=== PATIENT | female | born 1990 | race Caucasian/White ===

== ENCOUNTER 2016-08-25 08:03 | Emergency (ER) | payer MEDICAID ==
[~2016-08-25] VITALS: Ht 160 cm; Wt 75.0 kg
[~2016-08-25 08:03] MED LIST: ERYT500 PO; RANI150 PO; Z.0.NO CURRENT MEDS; ZYRT10TA12 PO
[2016-08-25 08:04] VITALS: BP 146/77; PULSE 107; RESP 18; TEMP 98.2; O2SAT 98
[2016-08-25] MEDS ORDERED: MOTR200T4 PO (08:16)
--- NOTE | 2016-08-25 08:21 | PD ---
HPI Chief Complaint: Injury Time Seen by Provider: 08:21 Travel History International Travel<30 days: No Contact w/Intl Traveler<30days: No Traveled to known affect area: No History of Present Illness HPI 25-year-old female presents to the emergency department with complaint of right wrist pain since Tuesday after getting a massage. She said she heard a "pop" in her right wrist and her pain has gotten progressively worse. She states her hand is cold but she denies paresthesias, loss of sensation of the affected extremity. Reports decreased range of motion at the wrist secondary to pain. 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 Denies fever, chills, nausea , vomiting. Has taken ibuprofen with minimal amount of relief. Pain is aggravated with movement of the wrist and hand. Allergies to amoxicillin, Dilaudid, morphine, penicillin. No other modifying factors or associated signs and symptoms. PFSH Past Medical History ?: Not Social History Alcohol Use: No Tobacco Use: No Allergies-Medications (Allergen,Severity, Reaction): Coded Allergies: Amoxicillin (Verified Allergy, Severe, 08/25/16) Penicillin (Verified Allergy, Severe, 08/25/16) Dilaudid (Verified Allergy, Unknown, 08/25/16) Morphine (Verified Allergy, Unknown, 08/25/16) Reported Meds & Prescriptions Reported Meds & Active Scripts Active Ibuprofen 800 Mg Tab 800 Mg PO Q6HR PRN Zantac (Ranitidine HCl) 150 Mg Tab 150 Mg PO BID 30 Days Zyrtec (Cetirizine HCl) 10 Mg Tab 10 Mg PO HS Reza-Tab (Erythromycin) 500 Mg Tabec 500 Mg PO QID 10 Days Reported Motrin Ib (Ibuprofen) 200 Mg Tab 800 Mg PO Q4H PRN No Current Meds (Miscellaneous Medication) Misc Review of Systems Except as stated in HPI: all other systems reviewed are Neg Physical Exam Narrative GENERAL: Well-nourished, well-developed female patient, in no acute distress SKIN: Warm and dry. HEAD: Atraumatic. Normocephalic. EYES: Pupils equal and round. No scleral icterus. No injection or drainage. ENT: Mucosa pink and moist. Airway patent. NECK: Trachea midline. CARDIOVASCULAR: Regular rate. RESPIRATORY: No accessory muscle use. GASTROINTESTINAL: Rounded. MUSCULOSKELETAL: Right wrist with tenderness on palpation; without erythema, edema, ecchymosis; decreased range of motion secondary to guarding and pain; no obvious deformity. Right upper extremity is supple and nontender to plus radial pulse and sensory intact to all fingertips. No obvious deformities. No clubbing. No cyanosis. NEUROLOGICAL: Awake and alert. Oriented 3. No obvious cranial nerve deficits. Motor grossly within normal limits. Normal speech. PSYCHIATRIC: Appropriate mood and affect; insight and judgment normal. Data Data Last Documented VS Vital Signs Date Time Temp Pulse Resp B/P Pulse Ox O2 Delivery O2 Flow Rate FiO2 08/25/16 08:04 98.2 107 18 146/77 98 Orders Wrist, Complete ([id number]) (08/25/16 08:21) Ibuprofen (Motrin) (08/25/16 08:30) MDM Medical Decision Making Medical Screen Exam Complete: Yes Emergency Medical Condition: Yes Medical Record Reviewed: Yes Differential Diagnosis Wrist sprain, carpal tunnel syndrome, less likely wrist fracture Narrative Course 25-year-old female with right wrist injury. I do not suspect fracture or dislocation. The patient is requesting x-ray. Ibuprofen and right wrist x-ray ordered. 0916: Right wrist x-ray with no acute findings. Wrist splint provided for support. Ibuprofen prescribed for home. Instructed patient to follow up if symptoms persist greater than 7-10 days. Patient verbalizes understanding and agreement with treatment plan. Patient is medically cleared and stable for discharge. Discussed reasons to return to the emergency department. Instructed patient to follow up with primary care provider. Patient agrees with treatment plan. The patients vital signs are stable and the patient is stable for outpatient follow-up and treatment. Patient discharged home, stable and in no acute distress. Diagnosis Primary Impression: Right wrist injury Qualified Code: S69.91XA - Right wrist injury, initial encounter Referrals: Primary Care Physician Patient Instructions: General Instructions, Wrist Sprain (ED) Departure Forms: Tests/Procedures, Work Release Enter return to work date: September 01, 2016 Additional Instructions: Tylenol or ibuprofen as directed and as needed to reduce pain Rest, ice, compress, and elevate extremity to decrease pain and inflammation Andi wrap for support Wrist Splint for support Avoid aggravating activity; increase activity as tolerated Follow-up with primary care provider Return to the emergency department immediately with worsening symptoms Med/Other Pt SpecificInfo: Prescription(s) given Scripts Ibuprofen 800 Mg Dac595 Mg PO Q6HR PRN (PAIN) #30 TAB Ref 0 Prov:Sharmila Acevedo 08/25/16 Disposition: 01 DISCHARGE HOME Condition: Stable Sharmila Acevedo Aug 25, 2016 08:21
[2016-08-25] MEDS ORDERED: IBUPROFEN 800 MG TAB PO ONE (08:30)
[2016-08-25] MEDS ORDERED: IBUP800T23 PO (08:35)
--- NOTE | 2016-08-25 09:14 | RADRPT ---
EXAM DATE/TIME: 08/25/2016 08:29 [facility] COMPARISON: No previous studies available for comparison. INDICATIONS : Trauma. Pain to lateral side of Right wrist after giving a massage. MEDICAL HISTORY : None. SURGICAL HISTORY : None. ENCOUNTER: Initial ACUITY: 1 day PAIN SCORE: 10/10 LOCATION: Right wrist FINDINGS: Three view examination of the right wrist demonstrates no soft tissue swelling, dislocation, or fract ure. The carpal bones are in normal alignment. The joint spaces are maintained. Bony mineralizatio n is normal. CONCLUSION: Normal examination for a patient of this age. Mickey Vitale MD FACR on August 25, 2016 at 9:12 Board Certified Radiologist. This report was verified electronically.
== END 2016-08-25 09:54 | disposition home or self-care (01) ==
LOC: NEPK 08:03
DX: S69.91XA Unspecified injury of right wrist, hand and finger(s), initial encounter (principal); X58.XXXA Exposure to other specified factors, initial encounter; Y92.9 Unspecified place or not applicable; Y99.8 Other external cause status; Y93.89 Activity, other specified
CPT/HCPCS: 73110; 99283; L3908